=== PATIENT | male | born 1955 | race African-American/Black ===

== ENCOUNTER 2020-04-08 11:00 | Inpatient (IN) | payer OTHER ==
[2020-04-02 13:21] VITALS: BMI 21.7
[~2020-04-08 11:00] MED LIST: BUPIVICAINE 0.25%/MORPH PF/KETOROLAC - 51ML DISP.SYRINGE IA ONE; VANCOMYCIN 1,000 MG VIAL (RESTRICTED TO ID ONLY) IVPB ONE
[2020-04-08] MEDS ORDERED: MIDAZOLAM HCL 2 MG/2 ML SINGLE DOSE VIAL ONE (14:16)
[2020-04-08] MEDS ORDERED: BUPIVACAINE HCL/PF 0.5% (5 MG/ML) 30 ML VIAL IJ ONE (14:16)
[2020-04-08] MEDS ORDERED: VANCOMYCIN 1,000 MG VIAL (RESTRICTED TO ID ONLY) ONE (14:38)
[2020-04-08] MEDS ORDERED: PROPOFOL 20 ML ONE ×4 (15:05→17:18)
[2020-04-08] MEDS ORDERED: ONDANSETRON 4 MG/2 ML VIAL IVPUSH PRN ×2 (15:12→18:08)
[2020-04-08] MEDS ORDERED: PROMETHAZINE HCL 25 MG/1 ML VIAL IVPUSH PRN (15:12)
[2020-04-08] MEDS ORDERED: LACTATED RINGERS SOLUTION 1,000 ML IV SCH ×2 (15:15→18:15)
[2020-04-08] MEDS ORDERED: TRANEXAMIC ACID 1000 MG/10 ML VIAL ONE ×2 (15:24→17:16)
[2020-04-08] MEDS ORDERED: ceFAZolin SODIUM 1 GM VIAL ONE (15:24)
[2020-04-08] MEDS ORDERED: BUPIVICAINE 0.25%/MORPH PF/KETOROLAC - 51ML DISP.SYRINGE IA ONE ×2 (15:34→17:21)
[2020-04-08] MEDS ORDERED: VANCOMYCIN 1,000 MG VIAL (RESTRICTED TO ID ONLY) IVPB ONE (17:25)
[2020-04-08] MEDS ORDERED: MAG HYDROX/AL HYDROX/SIMETH 30 ML UNIT-DOSE CUP PO PRN (18:08)
[2020-04-08] MEDS ORDERED: MAGNESIUM HYDROX 2400MG/30ML ORAL SUSPENSION 30 ML CUP PO PRN (18:08)
[2020-04-08] MEDS ORDERED: ACETAMINOPHEN 1000 MG/100 ML VIAL (NON FORMULARY) IVPB ONE (18:16)
[2020-04-08] MEDS ORDERED: oxyCODONE HCL 5 MG TABLET PO PRN ×2 (18:16)
[2020-04-08] MEDS: GABAPENTIN 300 MG CAPSULE PO SCH (21:25)
[2020-04-08] MEDS: SENNOSIDES/DOCUSATE COMBO (SENNA PLUS) TABLET (UD) PO SCH (21:25)
[2020-04-09] MEDS: CEFAZOLIN 2 GM/D5W 2 GM/50 ML ML IVPB SCH ×3 (00:23→16:18)
[2020-04-09] MEDS: ACETAMINOPHEN 325 MG TABLET (FP) PO SCH ×4 (00:23→18:02)
[2020-04-09 07:44] LABS: HEMATOCRIT 36.3 % (35.4-49); MCH 29.1 pg (25.7-33.7); MEAN CELL VOLUME 88.1 fl (80-96); MEAN PLT VOLUME 7.6 fl (7.5-11.1); PLATELET COUNT 195 K/MM3 (134-434); RBC 4.12 M/mm3 (4.00-5.60); RDW 12.4 % (11.9-15.9); WHITE BLOOD COUNT 6.6 K/mm3 (4.0-10.8)
[2020-04-09 07:55] LABS: CALCIUM 8.1 mg/dl (8.5-10); CREATININE 1.3 mg/dl (0.55-1.3); POTASSIUM 3.8 mmol/L (3.5-5.1)
[2020-04-09] MEDS: GABAPENTIN 300 MG CAPSULE PO SCH ×2 (09:55→21:12)
[2020-04-09] MEDS: SENNOSIDES/DOCUSATE COMBO (SENNA PLUS) TABLET (UD) PO SCH ×2 (09:55→21:12)
[2020-04-09] MEDS: PANTOPRAZOLE 40 MG TABLET PO SCH (09:56)
[2020-04-09] MEDS: MULTIVITAMINS (DAILY MVI) TABLET (FP) PO SCH (09:56)
[2020-04-09] MEDS: ASPIRIN 325 MG TABLET PO SCH ×2 (09:56→21:12)
[2020-04-10] MEDS: ACETAMINOPHEN 325 MG TABLET (FP) PO SCH ×3 (01:30→13:28)
[2020-04-10 07:46] LABS: HEMATOCRIT 36.6 % (35.4-49); HEMOGLOBIN 12.1 GM/dl (11.7-16.9); MCH 29.2 pg (25.7-33.7); MCHC 32.9 g/dl (32.0-35.9); MEAN CELL VOLUME 88.7 fl (80-96); MEAN PLT VOLUME 7.8 fl (7.5-11.1); PLATELET COUNT 209 K/MM3 (134-434); RBC 4.13 M/mm3 (4.00-5.60); RDW 12.9 % (11.9-15.9); WHITE BLOOD COUNT 8.2 K/mm3 (4.0-10.8)
[2020-04-10] MEDS: GABAPENTIN 300 MG CAPSULE PO SCH (09:42)
[2020-04-10] MEDS: SENNOSIDES/DOCUSATE COMBO (SENNA PLUS) TABLET (UD) PO SCH (09:42)
[2020-04-10] MEDS: PANTOPRAZOLE 40 MG TABLET PO SCH (09:43)
[2020-04-10] MEDS: ASPIRIN 325 MG TABLET PO SCH (09:43)
[2020-04-10] MEDS: MULTIVITAMINS (DAILY MVI) TABLET (FP) PO SCH (10:35)
[2020-04-10 13:43] VITALS: BP 120/48; PULSE 76
[2020-04-10 13:56] VITALS: TEMP 98.3
== END 2020-04-10 15:20 | disposition home or self-care (01) | DRG 470 ==
LOC: FM/S 12:26
PROVIDERS: ADMIT Orthopaedic Surgery Sports Medicine; ATTEND Nurse Practitioner Acute Care
PROC: 8E0Y0CZ Robotic Assisted Procedure of Lower Extremity, Open Approach (ICD-10-PCS; 2020-04-08)
PROC: 0SR903A Replacement of Right Hip Joint with Ceramic Synthetic Substitute, Uncemented, Open Approach (ICD-10-PCS; principal; 2020-04-08 15:34)
DX: M16.11 Unilateral primary osteoarthritis, right hip (principal); L30.9 Dermatitis, unspecified
CPT/HCPCS: 36415; 73502-TC-RT-FY; 80048; 85027; 94760; 97010-GP; 97116-GP; 97163-GP; J0131

== ENCOUNTER 2020-07-01 07:56 | Inpatient (IN) | payer OTHER ==
[2020-06-25 09:18] VITALS: BMI 20.9
[~2020-07-01 07:56] MED LIST changes: -BUPIVICAINE 0.25%/MORPH PF/KETOROLAC - 51ML DISP.SYRINGE IA ONE; +HYDROmorphone HCl 2 MG/ML VIAL IVPUSH PRN; +ONDANSETRON 4 MG/2 ML VIAL IVPUSH PRN; +PROMETHAZINE HCL 25 MG/1 ML VIAL IVPB PRN; -VANCOMYCIN 1,000 MG VIAL (RESTRICTED TO ID ONLY) IVPB ONE; +oxyCODONE HCL 5 MG TABLET PO PRN
[2020-07-01] MEDS ORDERED: VANCOMYCIN 1,000 MG VIAL (RESTRICTED TO ID ONLY) ONE (08:30)
[2020-07-01] MEDS ORDERED: BUPIVICAINE 0.25%/MORPH PF/KETOROLAC - 51ML DISP.SYRINGE IA ONE ×3 (09:04→12:06)
[2020-07-01] MEDS ORDERED: PROPOFOL 20 ML ONE ×4 (09:43→10:42)
[2020-07-01] MEDS ORDERED: PHENYLEPHRINE HCL 10 MG/1 ML SINGLE DOSE VIAL ONE (09:48)
[2020-07-01] MEDS ORDERED: ePHEDrine SULFATE 50 MG/1 ML AMPULE ONE (10:12)
[2020-07-01] MEDS ORDERED: MIDAZOLAM HCL 2 MG/2 ML SINGLE DOSE VIAL ONE (10:40)
[2020-07-01] MEDS ORDERED: MAG HYDROX/AL HYDROX/SIMETH 30 ML UNIT-DOSE CUP PO PRN (13:01)
[2020-07-01] MEDS ORDERED: ONDANSETRON 4 MG/2 ML VIAL IVPUSH PRN (13:01)
[2020-07-01] MEDS ORDERED: MAGNESIUM HYDROX 2400MG/30ML ORAL SUSPENSION 30 ML CUP PO PRN (13:01)
[2020-07-01] MEDS ORDERED: LACTATED RINGERS SOLUTION 1,000 ML IV SCH (13:15)
[2020-07-01] MEDS: LACTATED RINGERS SOLUTION 1,000 ML IV SCH (17:24)
[2020-07-01] MEDS: CEFAZOLIN 2 GM/D5W 2 GM/50 ML ML IVPB SCH (18:14)
[2020-07-01] MEDS: SENNOSIDES/DOCUSATE COMBO (SENNA PLUS) TABLET (UD) PO SCH (21:41)
[2020-07-01] MEDS: GABAPENTIN 300 MG CAPSULE PO SCH (21:42)
[2020-07-02] MEDS: CEFAZOLIN 2 GM/D5W 2 GM/50 ML ML IVPB SCH ×2 (01:54→09:06)
[2020-07-02 08:05] LABS: HEMATOCRIT 36.1 % (35.4-49); MCHC 33.3 g/dl (32.0-35.9); MEAN CELL VOLUME 87.3 fl (80-96); MEAN PLT VOLUME 7.8 fl (7.5-11.1); PLATELET COUNT 191 K/MM3 (134-434); RBC 4.14 M/mm3 (4.00-5.60); RDW 12.7 % (11.9-15.9); WHITE BLOOD COUNT 8.1 K/mm3 (4.0-10.8)
[2020-07-02 08:07] LABS: CALCIUM 8.3 mg/dl (8.5-10)
[2020-07-02] MEDS: LACTATED RINGERS SOLUTION 1,000 ML IV SCH (08:45)
[2020-07-02] MEDS: oxyCODONE HCL 5 MG TABLET PO PRN ×2 (08:45→16:02)
[2020-07-02] MEDS: SENNOSIDES/DOCUSATE COMBO (SENNA PLUS) TABLET (UD) PO SCH ×2 (09:06→21:29)
[2020-07-02] MEDS: GABAPENTIN 300 MG CAPSULE PO SCH ×2 (09:06→21:29)
[2020-07-02] MEDS: ASPIRIN 325 MG TABLET PO SCH ×2 (09:06→21:29)
[2020-07-02] MEDS: MULTIVITAMINS (DAILY MVI) TABLET (FP) PO SCH (09:06)
[2020-07-02] MEDS: PANTOPRAZOLE 40 MG TABLET PO SCH (09:09)
[2020-07-03 08:40] LABS: HEMOGLOBIN 12.3 GM/dl (11.7-16.9); MCH 29.2 pg (25.7-33.7); MCHC 33.3 g/dl (32.0-35.9); MEAN CELL VOLUME 87.7 fl (80-96); MEAN PLT VOLUME 8.1 fl (7.5-11.1); PLATELET COUNT 188 K/MM3 (134-434); RBC 4.22 M/mm3 (4.00-5.60); RDW 13.3 % (11.9-15.9); WHITE BLOOD COUNT 9.1 K/mm3 (4.0-10.8)
[2020-07-03] MEDS: SENNOSIDES/DOCUSATE COMBO (SENNA PLUS) TABLET (UD) PO SCH (09:24)
[2020-07-03] MEDS: ASPIRIN 325 MG TABLET PO SCH (09:25)
[2020-07-03] MEDS: MULTIVITAMINS (DAILY MVI) TABLET (FP) PO SCH (09:25)
[2020-07-03] MEDS: GABAPENTIN 300 MG CAPSULE PO SCH (09:25)
[2020-07-03] MEDS: PANTOPRAZOLE 40 MG TABLET PO SCH (09:25)
[2020-07-03 14:11] VITALS: BP 99/51; PULSE 86; TEMP 99.5
== END 2020-07-03 14:54 | disposition home or self-care (01) | DRG 470 ==
LOC: FM/S 07:56
PROVIDERS: ADMIT Orthopaedic Surgery Sports Medicine; ATTEND Nurse Practitioner Acute Care
PROC: 8E0Y0CZ Robotic Assisted Procedure of Lower Extremity, Open Approach (ICD-10-PCS; 2020-07-01)
PROC: 0SRB0JZ Replacement of Left Hip Joint with Synthetic Substitute, Open Approach (ICD-10-PCS; principal; 2020-07-01 10:25)
DX: M16.12 Unilateral primary osteoarthritis, left hip (principal)
CPT/HCPCS: 36415; 73502-TC-LT-FY; 80048; 85027; 88305-TC; 88311-TC; 94760; 97010-GP; 97116-GP; 97162-GP